=== PATIENT | male | born 1970 | race Caucasian/White ===

== ENCOUNTER 2017-07-20 11:43 | Emergency (ER) | payer MEDICAID, OTHER ==
[2017-07-20 12:44] VITALS: BP 164/99; PULSE 62; RESP 16; TEMP 98; O2SAT 100
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
== END 2017-07-20 14:45 | disposition home or self-care (01) ==
LOC: H.ER 11:43
DX: M54.9 Dorsalgia, unspecified (principal); V43.52XA Car driver injured in collision with other type car in traffic accident, initial encounter; Y92.410 Unspecified street and highway as the place of occurrence of the external cause; I10 Essential (primary) hypertension; B20 Human immunodeficiency virus [HIV] disease
CPT/HCPCS: 72100; 96372; 99284; J1885